=== PATIENT | female | born 1990 | race Caucasian/White ===

== ENCOUNTER 2017-02-27 19:50 | Emergency (ER) ==
[2017-02-27 20:00] VITALS: BP 129/77; TEMP 98.7; BMI 26.9
[2017-02-27] MEDS ORDERED: BACTRIM DS 800/160 MG PO STA (20:10)
[2017-02-27] MEDS ORDERED: LIDOCAINE HCL 4% 5 ML AMP INJ STA (20:10)
--- NOTE | 2017-02-27 20:13 | ED.PDOC ---
General ED Provider: Dr. MERVIN TRAVIS Chief Complaint: Abscess Stated Complaint: Patient noticed a pimple yesterday that has now grown on the middle of her chest radiating to the right breast. Took ibuprofen which has not helped much Time Seen by Physician: 20:11 Mode of Arrival: Walk-In Information Source: Patient Exam Limitations: No limitations Primary Care Provider: ASHLEY SOFIA Nursing and Triage Documentation Reviewed and Agree: Yes Skin Complaint Exam - Skin/Soft Tissue Complaint/Exam Onset/Duration: 2 days Symptoms Are: Still present Timing: Constant Initial Severity: Moderate Current Severity: Severe Location: Mid chest Character: Reports: Redness, Swelling, Raised, Painful Aggravating: Reports: Touch Alleviating: Reports: None Associated Signs and Symptoms: Reports: Tenderness, Red streaks Related Surgical History: Reports: None Recent Exposure to Others w/Similar Symptoms: No Skin Findings: Present: Erythema, Fluctuant mass (Measuring 3 cm in diameter. ) Joint Tenderness Present: No Differential Diagnoses: Abscess, Cellulitis Review of Systems - Review Of Systems Constitutional: Reports: No symptoms Eyes: Reports: No symptoms Ears, Nose, Mouth, Throat: Reports: No symptoms Respiratory: Reports: No symptoms Cardiac: Reports: No symptoms GI: Reports: No symptoms : Reports: No symptoms Musculoskeletal: Reports: No symptoms Skin: Reports: Lesions, Rash Neurological: Reports: Anxiety Endocrine: Reports: No symptoms Hematologic/Lymphatic: Reports: No symptoms All Other Systems: Reviewed and Negative Past Medical History - Past Medical History Previously Healthy: Yes Endocrine: Reports: None Cardiovascular: Reports: None Respiratory: Reports: None Hematological: Reports: None Gastrointestinal: Reports: Other (celiac disease ) Genitourinary: Reports: None Neuro/Psych: Reports: None Musculoskeletal: Reports: None Cancer: Reports: None Last Menstrual Period: 6 days - Surgical History General Surgical History: Reports: None - Family History Family History: Reports: Unknown - Social History Smoking Status: Never smoker Hx Substance Use: No Alcohol Screening: None Physical Exam - Physical Exam Appearance: Ill-appearing Ill-appearing: Mild Pain Distress: Severe Neck: Supple Respiratory: Airway patent, Breath sounds clear, Breath sounds equal, Respirations nonlabored Cardiovascular: RRR GI/: Soft, Nontender, No masses, Bowel sounds normal, No Organomegaly Musculoskeletal: Normal strength, ROM intact, No edema, No calf tenderness Skin: Warm, Dry, Normal color Neurological: Sensation intact, Motor intact, Reflexes intact, Cranial nerves intact, Alert, Oriented Psychiatric: Anxious Procedures - Incision and Drainage Site: Mid chest 3 cm in diameter. Instrument Used: 11 Blade I & D Procedure: Yes: Betadine Prep Lidocaine Used: Yes (4 % 5 ml) Type of Drainage: Present: Pus, Blood Irrigated: Yes Progress: Tolerated fairly Packed with 1/4 iodoform gauze Critical Care Note - Critical Care Note Total Time (mins): 30 Course - Course Orders, Labs, Meds: Orders Category Date Time Status CULTURE WOUND [WOUND CULTURE] Stat LAB 02/27/17 20:50 Received Ibuprofen [Motrin] MEDS 02/27/17 20:40 Discontinued 800 mg PO ONCE STA Lidocaine HCl/Pf [Lidocaine HCl 4% 5 ml Amp] MEDS 02/27/17 20:10 Discontinued 5 ml INJ ONCE STA Sulfamethoxazole/Trimethoprim [Bactrim Ds 800/160 mg] MEDS 02/27/17 20:10 Discontinued 1 tab PO ONCE STA Medications Discontinued Medications Generic Name Dose Route Start Last Admin Trade Name Freq PRN Reason Stop Dose Admin Ibuprofen 800 mg 02/27/17 20:40 02/27/17 20:46 Motrin PO 02/27/17 20:41 800 mg ONCE STA Administration Lidocaine HCl 5 ml 02/27/17 20:10 02/27/17 20:47 Lidocaine Hcl 4% 5 Ml Amp INJ 02/27/17 20:11 5 ml ONCE STA Administration Trimethoprim/Sulfamethoxazole 1 tab 02/27/17 20:10 02/27/17 20:18 Bactrim Ds 800/160 Mg PO 02/27/17 20:11 1 tab ONCE STA Administration Vital Signs: Temp Pulse Resp BP Pulse Ox 02/27/17 19:51 98.7 F 79 20 129/77 97 Departure - Departure Time of Disposition: 20:40 Disposition: HOME SELF-CARE Discharge Problem: Abscess Instructions: Abscess (ED) Condition: Fair Pt referred to PMD for follow-up: Yes Additional Instructions: Have your packing changed in 48 hours Take antibiotics as prescribed. change dressing as needed Prescriptions: Hydrocodone/Acetaminophen [[place] 5-325 Tablet] 1 tab PO Q6HR PRN #10 tablet PRN Reason: PAIN Ibuprofen [Motrin] 600 mg PO Q6H PRN #30 tablet PRN Reason: Analgesia Sulfamethoxazole/Trimethoprim [Bactrim Ds Tablet] 1 each PO BID #20 tablet Allergies/Adverse Reactions: Allergies No Known Allergies Allergy (Verified 02/27/17 19:57) Home Medications: Ambulatory Orders Dicyclomine HCl [Bentyl] 10 mg PO BID 06/02/16 Hydrocodone/Acetaminophen [[place] 5-325 Tablet] 1 tab PO Q6HR PRN #10 tablet Ibuprofen [Motrin] 600 mg PO Q6H PRN #30 tablet 02/27/17 Sulfamethoxazole/Trimethoprim [Bactrim Ds Tablet] 1 each PO BID #20 tablet 02/27
[2017-02-27] MEDS ORDERED: MOTRIN PO STA (20:40)
== END 2017-02-27 20:56 | disposition home or self-care (01) ==
LOC: ED 19:50
DX: L02.213 Cutaneous abscess of chest wall (principal)
CPT/HCPCS: 87070; 87186; 99283

== ENCOUNTER 2017-03-01 09:59 | Emergency (ER) ==
[2017-03-01 09:59] VITALS: BMI 26.9
[2017-03-01 10:08] VITALS: BP 108/71; TEMP 98.2
--- NOTE | 2017-03-01 10:14 | ED.PDOC ---
General ED Provider: Dr. CARROL KOCH-ER Chief Complaint: Wound Check Stated Complaint: dr clark drained abscess 2 days ago--here to have packing removed--she says healing nicely without fever or chills Time Seen by Physician: 10:12 Mode of Arrival: Walk-In Information Source: Patient Exam Limitations: No limitations Primary Care Provider: ASHLEY SOFIA Nursing and Triage Documentation Reviewed and Agree: Yes Skin Complaint Exam - Skin/Soft Tissue Complaint/Exam Onset/Duration: 2 days ago Symptoms Are: Still present Timing: Constant Initial Severity: Mild Current Severity: None Location: anterior chest Character: Reports: Redness, Swelling, Raised, Painful Aggravating: Reports: None Alleviating: Reports: None Associated Signs and Symptoms: Reports: Drainage, Tenderness. Denies: Fever, Chills, Itching, Bruising, Red streaks, Joint swelling Recent Exposure to Others w/Similar Symptoms: No Skin Findings: Present: Fluctuant mass Joint Tenderness Present: No Differential Diagnoses: Abscess Review of Systems - Review Of Systems Constitutional: Reports: No symptoms Eyes: Reports: No symptoms Ears, Nose, Mouth, Throat: Reports: No symptoms Respiratory: Reports: No symptoms Cardiac: Reports: No symptoms GI: Reports: No symptoms : Reports: No symptoms Musculoskeletal: Reports: No symptoms Skin: Reports: No symptoms Neurological: Reports: No symptoms Endocrine: Reports: No symptoms Hematologic/Lymphatic: Reports: No symptoms All Other Systems: Reviewed and Negative Past Medical History - Past Medical History Previously Healthy: Yes Endocrine: Reports: None Cardiovascular: Reports: None Respiratory: Reports: None Hematological: Reports: None Gastrointestinal: Reports: Other (celiac disease ) Genitourinary: Reports: None Neuro/Psych: Reports: None Musculoskeletal: Reports: None Cancer: Reports: None Last Menstrual Period: 2 days ago - Surgical History General Surgical History: Reports: None - Family History Family History: Reports: Unknown - Social History Smoking Status: Never smoker Hx Substance Use: No Alcohol Screening: None Lives: With family Physical Exam - Physical Exam Appearance: Well-appearing, No pain distress, Well-nourished Pain Distress: Mild Eyes: SAMMIE, EOMI, Conjunctiva clear ENT: Ears normal, Nose normal, Oropharynx normal Neck: Supple Respiratory: Airway patent, Breath sounds clear, Breath sounds equal, Respirations nonlabored Cardiovascular: RRR, Pulses normal, No rub, No murmur GI/: Soft, Nontender, No masses, Bowel sounds normal, No Organomegaly Musculoskeletal: Normal strength, ROM intact, No edema, No calf tenderness Skin: Warm, Dry, Normal color Neurological: Sensation intact, Motor intact, Reflexes intact, Cranial nerves intact, Alert, Oriented Psychiatric: Affect appropriate Procedures - Additional Procedures Additional Procedures: Other (pcking removed--wound healing nicely--no drainage or erythema--sterile dressing applied) Critical Care Note - Critical Care Note Total Time (mins): 0 Course - Course Vital Signs: Temp Pulse Resp BP Pulse Ox 03/01/17 09:59 98.2 F 77 18 108/71 98 Departure - Departure Time of Disposition: 10:14 Disposition: HOME SELF-CARE Discharge Problem: Abscess Instructions: Abscess Follow-up (ED) Condition: Good Pt referred to PMD for follow-up: Yes Additional Instructions: continue antbx--wash wound with soap and water till healed--keep bandaid on till healed Allergies/Adverse Reactions: Allergies No Known Allergies Allergy (Verified 03/01/17 10:03) Home Medications: Ambulatory Orders Hydrocodone/Acetaminophen [[place] 5-325 Tablet] 1 tab PO Q6HR PRN #10 tablet Ibuprofen [Motrin] 600 mg PO Q6H PRN #30 tablet 02/27/17 Sulfamethoxazole/Trimethoprim [Bactrim Ds Tablet] 1 each PO BID #20 tablet 02/27 Disposition Discussed With: Patient
== END 2017-03-01 10:21 | disposition home or self-care (01) ==
LOC: ED 09:59
DX: L02.213 Cutaneous abscess of chest wall (principal); Z48.01 Encounter for change or removal of surgical wound dressing
CPT/HCPCS: 99281